=== PATIENT | female | born 1990 | race Caucasian/White ===

== ENCOUNTER 2018-02-28 05:02 | Emergency (ER) | payer OTHER, MEDICAID ==
[~2018-02-28] VITALS: Ht 144.8 cm; Wt 43.1 kg
[2018-02-28] MEDS ORDERED: DEPAKOTE ER500 MG (05:10)
[2018-02-28] MEDS ORDERED: BACTRIM DS TAB1 EACH PO (05:35)
[2018-02-28] MEDS ORDERED: KEFLEX250 MG PO (05:35)
[2018-02-28] MEDS ORDERED: ACETAMINOPHEN-1 EAC1 PO (05:35)
[2018-02-28 05:49] VITALS: BP 112/78
== END 2018-02-28 05:49 | disposition home or self-care (01) ==
LOC: M.ERS 05:02
DX: L02.411 Cutaneous abscess of right axilla (principal); F17.210 Nicotine dependence, cigarettes, uncomplicated

== ENCOUNTER 2018-03-08 12:07 | Emergency (ER) | payer OTHER, MEDICAID ==
[~2018-03-08] VITALS: Ht 144.8 cm; Wt 39.5 kg
[~2018-03-08 12:07] MED LIST: ACETAMINOPHEN-1 EAC1 PO; BACTRIM DS TAB1 EACH PO; DEPAKOTE ER500 MG; KEFLEX250 MG PO
[2018-03-08] MEDS ORDERED: DOXYCYCLINE 10100 MG PO (12:24)
[2018-03-08] MEDS ORDERED: ROBITUSSIN100 MG/53 PO (12:25)
[2018-03-08 12:32] LABS: URINE BILIRUBIN NEGATIVE (Negative); URINE BLOOD NEGATIVE (Negative); URINE CLARITY CLEAR; URINE COLOR YELLOW; URINE GLUCOSE-RANDOM NEGATIVE (Negative); URINE KETONES TRACE (Negative); URINE LEUKOCYTES-REFLEX NEGATIVE (Negative); URINE NITRITE-REFLEX NEGATIVE (Negative); URINE PROTEIN NEGATIVE (Negative); URINE SPECIFIC GRAVITY >= 1.030 (1.005-1.030); URINE UROBILINOGEN 0.2 E.U./dl (0.2-1.0)
[2018-03-08 13:58] VITALS: BP 104/58
== END 2018-03-08 13:59 | disposition home or self-care (01) ==
LOC: M.ERS 12:07
PROVIDERS: Physician Assistant
DX: Z20.2 Contact with and (suspected) exposure to infections with a predominantly sexual mode of transmission (principal); M79.641 Pain in right hand; F17.210 Nicotine dependence, cigarettes, uncomplicated

== ENCOUNTER 2018-07-08 18:19 | Emergency (ER) | payer OTHER ==
[~2018-07-08] VITALS: Ht 144.8 cm; Wt 40.8 kg
[~2018-07-08 18:19] MED LIST changes: +DOXYCYCLINE 10100 MG PO; +ROBITUSSIN100 MG/53 PO
[2018-07-08 18:45] LABS: URINE BILIRUBIN NEGATIVE (Negative); URINE BLOOD 3+ (Negative); URINE CLARITY SL CLOUDY; URINE COLOR YELLOW; URINE GLUCOSE-RANDOM NEGATIVE (Negative); URINE KETONES NEGATIVE (Negative); URINE LEUKOCYTES-REFLEX 1+ (Negative); URINE NITRITE-REFLEX NEGATIVE (Negative); URINE PROTEIN 2+ (Negative); URINE SPECIFIC GRAVITY >= 1.030 (1.005-1.030); URINE UROBILINOGEN 0.2 E.U./dl (0.2-1.0)
[2018-07-08 18:55] LABS: BACTERIA-REFLEX >30 Many /HPF (None Seen); CASTS None Seen /LPF (None Seen); CRYSTALS None Seen /LPF (None Seen); MUCUS 4-6 Moderate strn/LPF (None Seen); SQUAMOUS 0-3 Few /LPF (0-3); URINE RBC >20 Many /HPF (0-2); URINE WBC-REFLEX >25 Many /HPF (0-5); WBC CLUMPS Moderate (None Seen)
[2018-07-08] MEDS ORDERED: FLAGYL500 M1 PO (19:18)
[2018-07-08] MEDS ORDERED: BACTRIM DS TAB1 EACH PO (19:18)
[2018-07-08] MEDS ORDERED: PYRIDIUM200 MG PO (19:19)
[2018-07-08 19:43] VITALS: BP 120/71
== END 2018-07-08 19:37 | disposition home or self-care (01) ==
LOC: M.ERS 18:19
PROVIDERS: Nurse Practitioner Family
DX: N39.0 Urinary tract infection, site not specified (principal); N76.0 Acute vaginitis; B96.89 Other specified bacterial agents as the cause of diseases classified elsewhere; M79.674 Pain in right toe(s); F17.210 Nicotine dependence, cigarettes, uncomplicated

== ENCOUNTER 2018-07-12 20:19 | Emergency (ER) | payer OTHER ==
[~2018-07-12] VITALS: Ht 149.9 cm; Wt 37.6 kg
[~2018-07-12 20:19] MED LIST changes: +FLAGYL500 M1 PO; +PYRIDIUM200 MG PO
[2018-07-12 20:59] LABS: HEMATOCRIT 43.7 % (37.0-47.0); HEMOGLOBIN 14.3 gm/dL (12.0-15.0); MCH 31.2 pg (26.0-34.0); MCHC 32.7 g/dL (28.0-37.0); MCV 95.5 fL (80.0-100.0); MPV 7.6 fl. (7.2-11.1); NUCLEATED RBCS 0 /100WBC; PLATELET COUNT* 260 thou/uL (150-400); RBC 4.58 mil/uL (4.20-5.00); RDW-CV 12.9 % (10.5-14.5)
[2018-07-12 21:14] LABS: ALCOHOL < 10 mg/dL (<10); CALCIUM 9.1 mg/dL (8.5-10.1); CREATININE 0.7 mg/dL (0.6-1.3); POTASSIUM 4.1 mmol/L (3.5-5.1); SALICYLATE < 2.8 mg/dL (2.8-20.0)
[2018-07-12 21:19] LABS: ALBUMIN 3.8 g/dL (3.4-5.0); TOTAL BILIRUBIN 0.3 mg/dL (<0.1-1.0); TOTAL PROTEIN 7.6 g/dL (6.4-8.2)
[2018-07-12 21:33] LABS: ABSOLUTE LYMPHOCYTES 1.3 thou/uL (0.8-5.3); ABSOLUTE MONOCYTES 0.9 thou/uL (0.0-1.2); ABSOLUTE NEUTROPHILS 10.8 thou/uL (1.6-8.1)
[2018-07-12 21:34] LABS: PLATELET ESTIMATE ADEQUATE
[2018-07-13 01:19] VITALS: BP 104/66
[2018-07-13 16:01] LABS: ACETAMINOPHEN < 2 ug/mL (10-30)
== END 2018-07-13 01:25 | disposition home or self-care (01) ==
LOC: M.ERS 20:19
PROVIDERS: Family Medicine
DX: F12.10 Cannabis abuse, uncomplicated (principal); F17.210 Nicotine dependence, cigarettes, uncomplicated

== ENCOUNTER 2018-10-12 10:23 | Emergency (ER) | payer OTHER ==
[~2018-10-12] VITALS: Ht 124.5 cm; Wt 39.5 kg
[2018-10-12] MEDS ORDERED: magic mouthwash PO (12:01)
[2018-10-12 12:18] VITALS: BP 132/87
== END 2018-10-12 12:19 | disposition home or self-care (01) ==
LOC: M.ERS 10:23
DX: K12.0 Recurrent oral aphthae (principal); F17.210 Nicotine dependence, cigarettes, uncomplicated

== ENCOUNTER 2018-10-13 21:31 | Emergency (ER) | payer OTHER ==
[~2018-10-13] VITALS: Ht 144.8 cm; Wt 36.7 kg
[~2018-10-13 21:31] MED LIST changes: +magic mouthwash PO
[2018-10-13 22:08] LABS: ABSOLUTE EOSINOPHILS 0.1 thou/uL (0.0-0.7); ABSOLUTE LYMPHOCYTES 2.2 thou/uL (0.8-5.3); ABSOLUTE MONOCYTES 0.5 thou/uL (0.0-1.2); ABSOLUTE NEUTROPHILS 6.8 thou/uL (1.6-8.1); BASOPHILS 0.5 %; EOSINOPHILS 0.5 %; HEMOGLOBIN 12.9 gm/dL (12.0-15.0); LYMPHOCYTES 22.6 %; MCH 31.1 pg (26.0-34.0); MCV 91.4 fL (80.0-100.0); MONOCYTES 4.8 %; MPV 8.2 fl. (7.2-11.1); NUCLEATED RBCS 0 /100WBC; PLATELET COUNT* 215 thou/uL (150-400); POLYS 71.6 %; RBC 4.16 mil/uL (4.20-5.00); RDW-CV 14.2 % (10.5-14.5); WBC 9.5 thou/uL (4.0-11.0)
[2018-10-13 22:16] LABS: CALCIUM 8.7 mg/dL (8.5-10.1); CREATININE 0.6 mg/dL (0.6-1.3)
[2018-10-13 22:19] LABS: POTASSIUM 2.6 mmol/L (3.5-5.1)
[2018-10-13 22:20] LABS: ALBUMIN 3.7 g/dL (3.4-5.0); TOTAL BILIRUBIN 0.2 mg/dL (<0.1-1.0); TOTAL PROTEIN 7.2 g/dL (6.4-8.2)
[2018-10-13 22:30] LABS: ALCOHOL 144 mg/dL (<10); SALICYLATE < 2.8 mg/dL (2.8-20.0)
[2018-10-13 22:33] LABS: ACETAMINOPHEN < 2 ug/mL (10-30)
[2018-10-14 05:55] VITALS: BP 100/66
== END 2018-10-14 05:59 | disposition home or self-care (01) ==
LOC: M.ERS 21:31
PROVIDERS: Family Medicine
DX: F10.129 Alcohol abuse with intoxication, unspecified (principal); F17.210 Nicotine dependence, cigarettes, uncomplicated; Y90.0 Blood alcohol level of less than 20 mg/100 ml

== ENCOUNTER 2018-12-30 05:51 | Emergency (ER) | payer OTHER ==
[~2018-12-30] VITALS: Ht 144.8 cm; Wt 40.8 kg
[2018-12-30 07:02] LABS: HEMATOCRIT 47.4 % (37.0-47.0); HEMOGLOBIN 15.8 gm/dL (12.0-15.0); MCH 30.7 pg (26.0-34.0); MCHC 33.3 g/dL (28.0-37.0); MPV 7.5 fl. (7.2-11.1); NUCLEATED RBCS 0 /100WBC; PLATELET COUNT* 248 thou/uL (150-400); RBC 5.15 mil/uL (4.20-5.00); RDW-CV 13.6 % (10.5-14.5); WBC 9.7 thou/uL (4.0-11.0)
[2018-12-30 07:04] LABS: CALCIUM 8.9 mg/dL (8.5-10.1); CREATININE 0.7 mg/dL (0.6-1.3); POTASSIUM 3.9 mmol/L (3.5-5.1)
[2018-12-30 07:08] LABS: ALBUMIN 3.9 g/dL (3.4-5.0); TOTAL BILIRUBIN 0.9 mg/dL (<0.1-1.0); TOTAL PROTEIN 7.9 g/dL (6.4-8.2)
[2018-12-30 08:11] LABS: ABSOLUTE EOSINOPHILS 0.2 thou/uL (0.0-0.7); ABSOLUTE LYMPHOCYTES 0.5 thou/uL (0.8-5.3); ABSOLUTE MONOCYTES 0.3 thou/uL (0.0-1.2); ABSOLUTE NEUTROPHILS 8.7 thou/uL (1.6-8.1)
[2018-12-30 08:12] LABS: PLATELET ESTIMATE ADEQUATE
[2018-12-30 09:55] LABS: URINE BILIRUBIN NEGATIVE (Negative); URINE BLOOD NEGATIVE (Negative); URINE CLARITY CLEAR; URINE COLOR YELLOW; URINE GLUCOSE-RANDOM NEGATIVE (Negative); URINE KETONES 1+ (Negative); URINE LEUKOCYTES-REFLEX NEGATIVE (Negative); URINE NITRITE-REFLEX NEGATIVE (Negative); URINE PROTEIN NEGATIVE (Negative); URINE UROBILINOGEN 0.2 E.U./dl (0.2-1.0)
[2018-12-30 10:09] LABS: AMP/METHAMP POSITIVE (Negative); BARBITURATES Negative (Negative); BENZODIAZEPINES Negative (Negative); COCAINE Negative (Negative); METHADONE Negative (Negative); OPIATES Negative (Negative); PCP Negative (Negative); THC POSITIVE (Negative)
[2018-12-30] MEDS ORDERED: COMPAZINE10 MG PO (10:25)
[2018-12-30 10:45] VITALS: BP 96/56
== END 2018-12-30 10:47 | disposition home or self-care (01) ==
LOC: M.ERS 05:51
PROVIDERS: Emergency Medicine; Personal Emergency Response Attendant
DX: R11.2 Nausea with vomiting, unspecified (principal); F15.10 Other stimulant abuse, uncomplicated